=== PATIENT | male | born 1950 | race Caucasian/White ===

== ENCOUNTER → 2016-11-20 | Emergency (ER) | payer OTHER ==
[~2016-11-20] VITALS: Ht 172.7 cm; Wt 69.8 kg
[~2016-11-20] MED LIST: ASPIR-LOW81 MG PO; ATORVASTATIN CA40 MG PO; BRILINTA90 MG PO; CLINDAMYCIN HC300 MG PO; LOSARTAN POTASS25 MG PO; METOPROLOL SUCC25 MG PO; METOPROLOL SUCC50 MG PO; NITROSTAT0.4 MG SL
[2016-11-20 17:51] LABS: MCH 29.9 PG (29.0-34.0); MCHC 32.7 G/DL (30.0-36.0); MCV 91.5 FL (86-99); RBC DIS.WIDTH-CV 14.6 % (11.8-14.6); RBC DIS.WIDTH-SD 49.3 % (39-53); RED BLOOD COUNT 4.48 M/uL (4.00-5.50)
[2016-11-20 17:59] LABS: MEAN PLAT.VOLUME 10.6 uM^3 (9.0-12.4); PLATELET COUNT 289 K/uL (156-360)
[2016-11-20 18:00] LABS: WHITE BLOOD COUNT 16.9 K/uL (4.1-10.2)
[2016-11-20 18:01] LABS: CHLORIDE 104 mEq/L (99-109); POTASSIUM 4.3 mEq/L (3.7-5.4); SODIUM 135 mEq/L (136-147)
[2016-11-20 18:03] LABS: GLUCOSE 112 mg/dL (70-99)
[2016-11-20 18:04] LABS: ANION GAP 10 MEQ/L (2-14)
[2016-11-20 18:06] LABS: GFR ESTIMATE (CALCULATED) > 59 mL/min/
[2016-11-20 18:07] LABS: UREA NITROGEN (BUN) 13 mg/dL (9-23)
[2016-11-21 06:18] VITALS: BP 112/64
== END | disposition home or self-care (01) ==
LOC: EME 16:39
PROVIDERS: Physician Assistant Medical
PROC: 0CJY8ZZ Inspection of Mouth and Throat, Via Natural or Artificial Opening Endoscopic (ICD-10-PCS; principal; 2016-11-20)
DX: K04.7 Periapical abscess without sinus (principal); J34.89 Other specified disorders of nose and nasal sinuses; I10 Essential (primary) hypertension; I25.10 Atherosclerotic heart disease of native coronary artery without angina pectoris; I25.2 Old myocardial infarction; Z87.891 Personal history of nicotine dependence; Z95.5 Presence of coronary angioplasty implant and graft
CPT/HCPCS: 70491; 80048; 83605; 85027; 87040; 99281; 99285; J2543; J7030